=== PATIENT | male | born 1960 | race Caucasian/White ===

== ENCOUNTER 2017-11-19 09:45 | Emergency (ER) | payer BC ==
[~2017-11-19] VITALS: Ht 175.3 cm; Wt 77.1 kg
[2017-11-19] MEDS ORDERED: DIAZ5TAB PO (10:06)
[2017-11-19] MEDS ORDERED: TRAZ-144 PO (10:06)
--- NOTE | 2017-11-19 10:46 | NUR ---
Mays prescription was given by . Patient discharged to home in stable conditon. Written and verbal after care instructions given to patient. Patient verbalizes understanding of instructions.
== END 2017-11-19 10:47 | disposition home or self-care (01) ==
LOC: ER 09:45
DX: S92.511A Displaced fracture of proximal phalanx of right lesser toe(s), initial encounter for closed fracture (principal); F17.210 Nicotine dependence, cigarettes, uncomplicated; Z88.0 Allergy status to penicillin; Z79.891 Long term (current) use of opiate analgesic; Z79.899 Other long term (current) drug therapy; W22.8XXA Striking against or struck by other objects, initial encounter; Y93.89 Activity, other specified; Y92.89 Other specified places as the place of occurrence of the external cause; Y99.8 Other external cause status
CPT/HCPCS: 73620; A4663

== ENCOUNTER 2019-04-12 13:26 | Emergency (ER) | payer BC ==
[~2019-04-12] VITALS: Ht 175.3 cm; Wt 80.3 kg
[~2019-04-12 13:26] MED LIST: DIAZ5TAB PO; TRAZ-182 PO
--- NOTE | 2019-04-12 13:47 | NUR ---
Pt did not mention he has been having intermittent chest pain untile he was being triaged.
[2019-04-12 14:22] LABS: BASOPHILS % (AUTO) 0.6 % (0.0-2.0); EOSINOPHILS # (AUTO) 0.1 K/uL (0.0-0.7); EOSINOPHILS % (AUTO) 1.5 % (0.0-7.0); HEMOGLOBIN 17.7 g/dL (12.5-16.3); LYMPHOCYTES # (AUTO) 1.4 K/uL (20.0-40.0); LYMPHOCYTES % (AUTO) 20.8 % (20.5-51.5); MEAN CORPUSCULAR HEMOGLOBIN 29.6 uug (23.8-33.4); MEAN CORPUSCULAR HGB CONC 33 g/dL (32.5-36.3); MEAN CORPUSCULAR VOLUME 88.5 fL (73.0-96.2); MONOCYTES # (AUTO) 0.7 K/uL (2.0-10.0); NEUTROPHILS # (AUTO) 4.5 K/uL (1.8-8.9); NEUTROPHILS % (AUTO) 66.1 % (38.5-71.5); PLATELET COUNT (AUTO) 123 K/uL (152-348); RED BLOOD CELL COUNT(AUTO) 5.98 MIL/uL (4.06-5.63); WHITE BLOOD COUNT (AUTO) 6.7 K/uL (3.6-10.2)
[2019-04-12 14:24] LABS: CREATININE 1.4 mg/dL (0.6-1.3); POTASSIUM 3.9 mmol/L (3.5-5.1)
[2019-04-12 14:36] LABS: BILIRUBIN,DIRECT 0.1 mg/dL (0.0-0.2); BILIRUBIN,TOTAL 0.6 mg/dL (0.2-1.0); TOTAL PROTEIN, SERUM 7.5 g/dL (6.4-8.2)
--- NOTE | 2019-04-12 14:59 | NUR ---
FYI Pt's upholstery sewer : Melecio Patel MD [phone].
[2019-04-12] MEDS ORDERED: ASPI81TA31 PO (15:01)
[2019-04-12] MEDS ORDERED: ATOR80TA PO (15:01)
[2019-04-12] MEDS ORDERED: ALEN70TA3 PO (15:01)
--- NOTE | 2019-04-12 16:23 | NUR ---
Patient discharged to home in stable conditon. Written and verbal after care instructions given. Patient verbalizes understanding of instructions.
== END 2019-04-12 16:23 | disposition home or self-care (01) ==
LOC: ER 13:26
DX: R20.2 Paresthesia of skin (principal); R07.9 Chest pain, unspecified; F17.200 Nicotine dependence, unspecified, uncomplicated; Z88.0 Allergy status to penicillin; Z79.82 Long term (current) use of aspirin; Z79.899 Other long term (current) drug therapy
CPT/HCPCS: 36415; 70030-TC; 71045; 85025; 93005; A4663